=== PATIENT | female | born 1960 ===

== ENCOUNTER 2025-09-02 00:32 | Outpatient (CLI) | payer SELFPAY ==
[2025-09-02 09:06] LABS: Abs Immature Grans 0.02 10^3/uL (0.0-0.06); HCT 32.3 % (36.0-46.0); HGB 10.4 g/dL (11.2-15.7); MCH 28.4 pg (27.0-33.0); MCHC 32.2 % (32.0-36.0); MCV 88 fL (80-95); MPV 9.9 fL (8.0-11.0); Platelet Count 124 10^3/uL (130-400); RBC 3.66 10^6/uL (3.93-5.22); RDW 12.0 % (11.7-14.6); RDW-SD 38.9 fL
[2025-09-02 09:18] LABS: Uric Acid 3.0 mg/dL (3.1-7.8)
[2025-09-02 09:20] LABS: LDH 142 U/L (120-246)
[2025-09-02 09:21] LABS: ALT 15 U/L (10-49); AST 12 U/L (<34); Albumin 4.1 g/dL (3.2-5.0); Alkaline Phosphatase 60 U/L (46-116); Anion Gap 5.5 mmol/L (3-11); BUN 23 mg/dL (9-23); Bilirubin, Total 0.3 mg/dL (0.2-1.2); CO2 32.5 mmol/L (20.0-31.0); Calcium 9.5 mg/dL (8.3-10.6); Chloride 106 mmol/L (98-107); Glucose 97 mg/dL (74-106); Potassium 3.7 mmol/L (3.5-5.1); Sodium 144 mmol/L (136-145); Total Protein 6.3 g/dL (5.7-8.2)
[2025-09-02 09:52] LABS: Immature Grans % 0.0 %
[2025-09-02 09:57] LABS: RBC Morphology Normal; WBC 1.63 10^3/uL (4.4-10.8)
== END 2025-09-02 00:33 | disposition home or self-care (01) ==
LOC: LBO 00:32
PROVIDERS: Visit Provider Internal Medicine Hematology & Oncology
DX: C85.90 Non-Hodgkin lymphoma, unspecified, unspecified site (principal)
CPT/HCPCS: 36415; 80053; 83615; 84550; 85025